=== PATIENT | female | born 1970 | race Hispanic/Latino ===

== ENCOUNTER → 2024-09-11 | Outpatient (CLI) | payer MEDICAID ==
[2024-09-11 12:09] LABS: BASOPHILS # (AUTO) 0.04 K/uL (0.00-0.20); BASOPHILS % (AUTO) 0.6 % (0.0-5.0); EOSINOPHILS # (AUTO) 0.14 K/uL (0.00-0.70); EOSINOPHILS % (AUTO) 1.9 % (0.0-8.0); HEMATOCRIT 41.7 % (36-48); IMMATURE GRANULOCYTE ABSOLUTE 0.03 K/uL (0-1); LYMPHOCYTES # (AUTO) 2.3 K/uL (1.0-4.8); LYMPHOCYTES % (AUTO) 32.4 % (21.0-51.0); MEAN CORPUSCULAR HEMOGLOBIN 29.4 pg (27.0-33.0); MEAN CORPUSCULAR HGB CONC 32.1 g/dL (32.0-36.0); MEAN CORPUSCULAR VOLUME 91.4 fL (79-99); MONOCYTES # (AUTO) 0.5 K/uL (0.1-1.0); MONOCYTES % (AUTO) 7.5 % (3.0-13.0); NEUTROPHILS # (AUTO) 4.1 K/uL (1.8-7.7); NEUTROPHILS % (AUTO) 57.2 % (40.0-77.0); PLATELET COUNT (AUTO) 164 K/uL (130-400); RED BLOOD CELL COUNT(AUTO) 4.56 MIL/uL (4.00-5.50); RED CELL DISTRIBUTION WIDTH 13.2 % (11.0-15.5); WHITE BLOOD COUNT (AUTO) 7.2 K/uL (4.8-10.8)
[2024-09-11 12:53] LABS: ALBUMIN 3.2 g/dL (3.5-5.0); BILIRUBIN,TOTAL 0.5 mg/dL (0.2-1.0); CREATININE 0.9 mg/dL (0.5-1.0); HEMOGLOBIN A1C 12.5 % (4.0-6.0); POTASSIUM 5.2 mmol/L (3.5-5.1); T4 (THYROXINE) 11.7 ug/dL (4.7-13.3); THYROID STIMULATING HORMONE 2.59 uIU/mL (0.36-3.74); TOTAL PROTEIN, SERUM 7.6 g/dL (6.0-8.3)
== END | disposition home or self-care (01) ==
LOC: LAB 09:22
PROVIDERS: ATTEND Internal Medicine Cardiovascular Disease
DX: R00.2 Palpitations (principal); R07.9 Chest pain, unspecified; R01.1 Cardiac murmur, unspecified; I70.8 Atherosclerosis of other arteries; I73.9 Peripheral vascular disease, unspecified
CPT/HCPCS: 36415; 80053; 80061; 83036; 83880; 84436; 84443; 84479; 85025

== ENCOUNTER → 2024-09-15 | Outpatient (CLI) | payer MEDICAID ==
--- NOTE | 2024-09-15 16:14 | HMCIMG ---
US CAROTID DUPLEX REASON: r09.89 TECHNIQUE: Exam was performed using spectral analysis and color flow imaging. FINDINGS: Color flow Doppler ultrasound shows normal-appearing bifurcations. There is no anatomic evidence of significant focal narrowing. Flow velocities and velocity ratios appear normal throughout. There is antegrade flow in both vertebral arteries. RIGHT CAROTID: CCA: 101 cm/sec ICA: 107 cm/sec Ratio: ICA/CCA: 1.0 ECA: 126 cm/sec Vertebral artery: 71 cm/sec LEFT CAROTID: CCA: 89 cm/sec ICA: 113 cm/sec Ratio: ICA/CCA: 0.9 ECA: 2 2 cm/sec Vertebral artery: 98 cm/sec IMPRESSION: Normal bilateral carotid Doppler ultrasound.
== END | disposition home or self-care (01) ==
LOC: RAH 13:37
PROVIDERS: ATTEND Internal Medicine Cardiovascular Disease
DX: R09.89 Other specified symptoms and signs involving the circulatory and respiratory systems (principal)
CPT/HCPCS: 93880

== ENCOUNTER → 2024-09-28 | Outpatient (CLI) | payer MEDICAID ==
[~2024-09-28] MED LIST: REGADENOSON 0.4 MG/5 ML PF SYG IVP ONE
--- NOTE | 2024-09-29 12:14 | HMCSR ---
APPROVED REPORT Height: 5 ft 5in Weight: 245 lbs TEST INDICATIONS Chest Pain The imaging protocol used to acquire images was Rest Tc-99m/stress Tc-99m 1 day Consent: The procedure was explained and understood by the patient. Informerd consent was witnessed Jamarcus Carroll RN First, low dose rest was performed then high dose stress. RESTING DATA: The resting ekg shows: NSR Rest SPECT myocardial perfusion imaging was performed in supine position minutes following the intra venous injection of 11 mCi of Tc-99 Sestamibi. Time of rest injection: 09:48: Date: 09/28/2024 PHARMACOLOGIC STRESS: Pharmacologic stress test was performed by injecting regadenoson 0.4 mg IV push followed by the intra venous injection of 29 mCi of Tc-99 Sestamibi. Time of stress injection: 11:30: Date: 09/28/2024 Heart Rate at time of stress injection: 91 bpm. The images were gated to evaluate regional wall motion and calculate left ventricular ejection fracti on. STRESS DETAILS Reason for Termination: Infusion complete Stress Symptoms: Increased Breathing Max HR Achieved: 110 bpm % of APMHR Achieved: 78 Max Blood Pressure: 165/54 mmHg Stress ECG: NSR LEFT VENTRICLE Size: The left ventricular size is normal. Systolic Function:The left ventricular systolic function is normal. Wall Motion: No regional wall motion abnormalities noted. The left ventricular ejection fraction was calculated to be 58%.TID = . LV PERFUSION The rest and stress images show normal perfusion. Conclusion The left ventricular size is normal. The left ventricular systolic function is normal. No regional wall motion abnormalities noted. The rest and stress images show normal perfusion. The left ventricular ejection fraction was calculated to be 58%.
== END | disposition home or self-care (01) ==
LOC: RAH 09:02
PROVIDERS: ATTEND Internal Medicine Cardiovascular Disease
DX: R07.9 Chest pain, unspecified (principal)
CPT/HCPCS: 78452; 93017; J2785; A9500 ×2

== ENCOUNTER → 2024-10-01 | Outpatient (CLI) | payer MEDICAID ==
[~2024-10-01] MED LIST changes: +IOHEXOL 350 MG/ML 100ML INFUS..BTL IV ONE; +IOHEXOL-350 50ML VIAL IV ONE; -REGADENOSON 0.4 MG/5 ML PF SYG IVP ONE
--- NOTE | 2024-10-01 13:11 | HMCIMG ---
CT ANGIO ABD AORTA W RUNOFF REASON: PVD COMPARISON: None TECHNIQUE: Axial images are obtained from lung bases through the symphysis pubis before and after IV contrast, 150 cc Omnipaque 350. FINDINGS: Contrast outlines normal appearing aorta. Renal and mesenteric artery origins are widely patent. There is some atherosclerotic change at the iliac bifurcation. Right common iliac artery is patent. The right external iliac artery is severely narrowed along an extended segment. Common femoral artery has only a pinpoint channel on the right. The left common iliac artery is occluded at its origin. There is an occluded stent extending to the external iliac artery. External iliac artery is also occluded. There is a femoral to femoral graft in place. This is occluded as well. Right leg runoff shows reconstitution of the superficial femoral artery. The SFA and popliteal arteries are widely patent. There is three-vessel runoff to the ankle. There is posterior tibial and dorsalis pedis runoff to the foot. Left leg also demonstrates a widely patent superficial femoral artery. The common femoral artery appears occluded. Popliteal artery is patent. Trifurcation vessels are intact. There is three-vessel runoff to the ankle with dorsalis pedis and posterior tibial runoff to the foot. There is moderate hepatic steatosis. Spleen, kidneys and pancreas appear normal, the gallbladder is absent. Bowel loops appear unremarkable. Pelvic soft tissues are unremarkable. There is no ventral hernia. IMPRESSION: 1. Patent abdominal aorta, renal and mesenteric artery origins are patent. 2. Patent right common iliac artery however there is a distended severe narrowing of the right external carotid artery, the right common femoral artery has only a pinpoint opening 3. Left common iliac arteries occluded at its origin, extracranial iliac artery is occluded, the left common femoral artery is occluded, there is also an occluded femoral to femoral graft 3. Both legs showed near normal runoff, superficial femoral and popliteal arteries are widely patent, trifurcation vessels are intact, three-vessel runoff to the ankle with 2 vessel runoff to the foot on both sides. 4. Moderate hepatic steatosis, there are no acute nonvascular findings.
== END | disposition home or self-care (01) ==
LOC: RAH 09:54
PROVIDERS: ATTEND Internal Medicine Cardiovascular Disease
DX: I74.5 Embolism and thrombosis of iliac artery (principal); I73.9 Peripheral vascular disease, unspecified; K76.0 Fatty (change of) liver, not elsewhere classified; I70.8 Atherosclerosis of other arteries; I77.1 Stricture of artery; Z90.49 Acquired absence of other specified parts of digestive tract
CPT/HCPCS: 75635; Q9967 ×3

== ENCOUNTER → 2024-10-15 | Outpatient (CLI) | payer MEDICAID ==
--- NOTE | 2024-10-19 07:39 | HMCSR ---
APPROVED REPORT EXAM: Two-dimensional and M-mode echocardiogram with Doppler and color Doppler. 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 Chest Pain Murmur 2D Dimensions RVDd3.3 cmLVEF(%)58.0 (>50%)LVED Vol(simp.)127.0 mL IVSd1.4 (0.7-1.1cm)FS(%)30 %LVES Vol(simp.)57.0 mL LVDd4.1 (3.8-5.6cm)Ao Root(2D)3.0 (2.0-3.7cm)LVEF(%, simp.)55 % PWd1.2 (0.7-1.1cm)LVOT diam2.0 (1.8-2.4cm)LA ESV INDEX (BP)31.07 mL/m2 LVDs2.9 (2.5-4.0cm)IVC diam1.1 cm Aortic Valve AoV Vmax1.3 m/Michael Peak GR7.0 mmHgLVOT Vmax1.0 m/s AoV VTI0.3 mAo Mean GR3.6 mmHgLVOT VTI0.20 m RONN (VMAX)2.5 cm2AVA (VTI) 2.5 cm2 Mitral Valve MV E Zzxf691.1 cm/sDECEL Wbrx764 msMV Peak GR12 mmHg MV A Xpbl068.2 cm/sP 1/2 T55 msMV Mean GR7 mmHg E/A ratio0.8MVA (PHT)4.0 cm2 MR Max PG91 mmHg TDI E/E' Rvtxhj73.0E/E' Wpwxkpw15.7 Pulmonary Valve PV Vmax0.9 m/sPV VTI0.17 mPV Mean GR2 mmHg PV Peak GR3.3 mmHg Tricuspid Valve TR Vmax2.0 m/sRAP (EST) 3 yqHiDLQW21.0 mmHg TR Peak GR16.0 mmHg Left Ventricle Left ventricular cavity size is normal. There is normal LV segmental wall motion. There is mild to mo derate concentric left ventricular hypertrophy. LVEF is 55-60%. No left ventricle thrombus noted on t his study. Grade 1 diastolic dysfunction Right Ventricle The right ventricle is normal size. The right ventricular systolic function is normal. Atria The left atrium size is normal. The right atrium size is normal. Aortic Valve Aortic valve is trileaflet. Aortic valve leaflets are sclerotic but open well. Trace aortic regurgita tion. There is no aortic valvular stenosis. Mitral Valve The mitral valve is mildly thickened. Mitral annular calcification is mild. Mitral regurgitation is m oderate. Calculated mitral valve area is 1.7 cm2 with maximum pressure gradient of 11.8 mmHg and mean pressure gradient of 6.6 mmHg. Tricuspid Valve The tricuspid valve leaflets appear normal. There is trace tricuspid regurgitation. Pulmonic Valve Pulmonic valve is not well visualized. Great Vessels The aortic root is normal in size. The IVC is normal in size and collapses >50% with inspiration. Pericardium No pericardial effusion. Other Information Quality : Technically Limited Technically limited study due to body habitus. Conclusion Left ventricular cavity size is normal. There is mild to moderate concentric left ventricular hypertrophy. LVEF is 55-60%. Grade 1 diastolic dysfunction The right ventricle is normal size. The left atrium size is normal. Aortic valve is trileaflet. Aortic valve leaflets are sclerotic but open well. Trace aortic regurgitation. The mitral valve is mildly thickened. Mitral annular calcification is mild. Mitral regurgitation is moderate. Calculated mitral valve area is 1.7 cm2 with maximum pressure gradient of 11.8 mmHg and mean pressure gradient of 6.6 mmHg. There is trace tricuspid regurgitation. The aortic root is normal in size. The IVC is normal in size and collapses >50% with inspiration. No pericardial effusion.
== END | disposition home or self-care (01) ==
LOC: SHCH 11:39
PROVIDERS: ATTEND Internal Medicine Cardiovascular Disease
DX: I08.0 Rheumatic disorders of both mitral and aortic valves (principal); I25.119 Atherosclerotic heart disease of native coronary artery with unspecified angina pectoris; R01.1 Cardiac murmur, unspecified; R07.9 Chest pain, unspecified
CPT/HCPCS: 93306

== ENCOUNTER → 2024-11-13 | Outpatient (CLI) | payer MEDICAID ==
[~2024-11-13] VITALS: Ht 167.6 cm; Wt 107.5 kg
[~2024-11-13] MED LIST changes: +0.9%NACL 1000ML 1,000 ML IV SCH; +ALBU18HF7 IH; +APIX5TAB PO; +BACL10TA PO; +BUDE10.2 IH; +CLOP75TA32 PO; +DULO30CA52 PO; +ERGO500093 PO; +INSU100I15 SQ; +INSU3INS3 SQ; -IOHEXOL 350 MG/ML 100ML INFUS..BTL IV ONE; -IOHEXOL-350 50ML VIAL IV ONE; +LISI5TAB21 PO; +METO25TA6 PO
[2024-11-13 15:09] VITALS: BP 158/67; PULSE 116; RESP 18; TEMP 99.1
[2024-11-13 15:20] LABS: BASOPHILS # (AUTO) 0.03 K/uL (0.00-0.20); BASOPHILS % (AUTO) 0.5 % (0.0-5.0); EOSINOPHILS # (AUTO) 0.09 K/uL (0.00-0.70); EOSINOPHILS % (AUTO) 1.4 % (0.0-8.0); HEMATOCRIT 39.4 % (36-48); IMMATURE GRANULOCYTE ABSOLUTE 0.02 K/uL (0-1); LYMPHOCYTES # (AUTO) 1.5 K/uL (1.0-4.8); LYMPHOCYTES % (AUTO) 23.9 % (21.0-51.0); MEAN CORPUSCULAR HGB CONC 32.5 g/dL (32.0-36.0); MEAN CORPUSCULAR VOLUME 92.5 fL (79-99); MONOCYTES # (AUTO) 0.5 K/uL (0.1-1.0); MONOCYTES % (AUTO) 7.1 % (3.0-13.0); NEUTROPHILS # (AUTO) 4.2 K/uL (1.8-7.7); NEUTROPHILS % (AUTO) 66.8 % (40.0-77.0); PLATELET COUNT (AUTO) 124 K/uL (130-400); RED BLOOD CELL COUNT(AUTO) 4.26 MIL/uL (4.00-5.50); RED CELL DISTRIBUTION WIDTH 13.5 % (11.0-15.5); WHITE BLOOD COUNT (AUTO) 6.3 K/uL (4.8-10.8)
--- NOTE | 2024-11-13 15:21 | EKG ---
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
[2024-11-13 15:30] LABS: APPEARANCE,URINE CLEAR (CLEAR); BILIRUBIN,URINE NEGATIVE (NEGATIVE); COLOR,URINE LIGHT-YELLOW (YELLOW); GLUCOSE, URINE (UA) >=1000 mg/dL (NEGATIVE); KETONES,URINE NEGATIVE (NEGATIVE); LEUKOCYTE ESTERASE ,URINE 25 Leu/uL (NEGATIVE); NITRATE,URINE NEGATIVE (NEGATIVE); PH,URINE 5.5 (5.0-8.0); PROTEIN,URINE NEGATIVE (NEGATIVE); UROBILINOGEN,URINE 0.2 mg/dL (0.2-1.0)
[2024-11-13 15:31] LABS: INR 1.01 (0.85-1.15); PROTHROMBIN TIME 10.7 SEC (9.6-11.6)
[2024-11-13 15:32] LABS: PARTIAL THROMBOPLASTIN TIME 25.1 SEC (26.3-35.5)
[2024-11-13 15:34] LABS: ADD UA MICROSCOPIC YES
[2024-11-13 15:35] LABS: BACTERIA,URINE RARE /HPF (None Seen); MUCUS,URINE RARE LPF (None Seen); SQUAMOUS EPITHELIAL CELL,UR RARE /HPF (0-2)
[2024-11-13 15:40] LABS: POTASSIUM 4.8 mmol/L (3.5-5.1)
[2024-11-13 15:53] LABS: B-TYPE NATRIURETIC PEPTIDE 38 pg/mL (0-100)
--- NOTE | 2024-11-13 16:10 | NUR ---
RE: ;ABS REPORTED UA RESULTS TO EDELMIRA AVILEZ NP (PATIENT ASYMPTOMATIC, WBC 6.3 AND PENDING URINE CX RESULTS) NO NEW ORDERS RECEIVED.
--- NOTE | 2024-11-13 16:16 | HMCIMG ---
Exam Type: CHEST 1VW Clinical Information: PRE OPS Comparison: None Findings: The lungs are clear of infiltrates. The heart is normal in size. The bony and soft tissue structures of the chest are unremarkable. Impression: Clear lungs.
== END | disposition home or self-care (01) ==
LOC: EDSTATUS 14:00 → DAH 14:27
PROVIDERS: ATTEND Internal Medicine Cardiovascular Disease
DX: Z01.818 Encounter for other preprocedural examination (principal); R00.0 Tachycardia, unspecified; I73.9 Peripheral vascular disease, unspecified
CPT/HCPCS: 36415; 71045; 80048; 81001; 83880; 85025; 85610; 85730; 87086; 93005

== ENCOUNTER 2024-12-04 05:50 | Day surgery (SDC) | payer MEDICAID ==
[2024-12-02 11:25] LABS: BASOPHILS # (AUTO) 0.04 K/uL (0.00-0.20); BASOPHILS % (AUTO) 0.6 % (0.0-5.0); EOSINOPHILS # (AUTO) 0.14 K/uL (0.00-0.70); EOSINOPHILS % (AUTO) 2.1 % (0.0-8.0); HEMATOCRIT 39.2 % (36-48); IMMATURE GRANULOCYTE ABSOLUTE 0.03 K/uL (0-1); LYMPHOCYTES # (AUTO) 2.1 K/uL (1.0-4.8); LYMPHOCYTES % (AUTO) 32.4 % (21.0-51.0); MEAN CORPUSCULAR HEMOGLOBIN 29.8 pg (27.0-33.0); MEAN CORPUSCULAR HGB CONC 32.7 g/dL (32.0-36.0); MEAN CORPUSCULAR VOLUME 91.4 fL (79-99); MONOCYTES # (AUTO) 0.4 K/uL (0.1-1.0); MONOCYTES % (AUTO) 6.7 % (3.0-13.0); NEUTROPHILS # (AUTO) 3.8 K/uL (1.8-7.7); NEUTROPHILS % (AUTO) 57.7 % (40.0-77.0); PLATELET COUNT (AUTO) 141 K/uL (130-400); RED BLOOD CELL COUNT(AUTO) 4.29 MIL/uL (4.00-5.50); RED CELL DISTRIBUTION WIDTH 13.4 % (11.0-15.5); WHITE BLOOD COUNT (AUTO) 6.6 K/uL (4.8-10.8)
[2024-12-02 11:34] LABS: POTASSIUM 4.4 mmol/L (3.5-5.1)
[2024-12-02 11:35] VITALS: BP 132/58; PULSE 98; RESP 17; TEMP 98.2
[2024-12-02 11:41] LABS: INR 0.97 (0.85-1.15); PROTHROMBIN TIME 10.3 SEC (9.6-11.6)
[2024-12-02 11:43] LABS: PARTIAL THROMBOPLASTIN TIME 25.1 SEC (26.3-35.5)
[2024-12-02 11:43] LABS: APPEARANCE,URINE CLEAR (CLEAR); BILIRUBIN,URINE NEGATIVE (NEGATIVE); COLOR,URINE LIGHT-YELLOW (YELLOW); GLUCOSE, URINE (UA) >=1000 mg/dL (NEGATIVE); KETONES,URINE NEGATIVE (NEGATIVE); LEUKOCYTE ESTERASE ,URINE NEGATIVE Leu/uL (NEGATIVE); NITRATE,URINE NEGATIVE (NEGATIVE); OCCULT BLOOD,URINE NEGATIVE (NEGATIVE); PH,URINE 5.5 (5.0-8.0); PROTEIN,URINE 10 mg/dL (NEGATIVE); UROBILINOGEN,URINE 0.2 mg/dL (0.2-1.0)
[2024-12-02 11:44] LABS: ADD UA MICROSCOPIC YES
[2024-12-02 11:45] LABS: RBC,URINE 0-1 /HPF (0-1); SQUAMOUS EPITHELIAL CELL,UR RARE /HPF (0-2); WBC,URINE 0-1 /HPF (0-1)
[2024-12-02 11:55] LABS: B-TYPE NATRIURETIC PEPTIDE 8 pg/mL (0-100)
--- NOTE | 2024-12-02 12:01 | EKG ---
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
--- NOTE | 2024-12-02 12:55 | HMCIMG ---
CHEST 1VW HISTORY: Preop COMPARISON: 11/13/2024 FINDINGS: A frontal projection of the chest was obtained. No acute pulmonary infiltrates is seen. The heart is borderline enlarged. Prominent interstitial markings are seen. Degenerative changes are seen. Aortic calcifications are seen. IMPRESSION: 1. No acute pulmonary infiltrate is seen.
--- NOTE | 2024-12-02 16:31 | NUR ---
REPORT REPORTED RBS SINCE THIS MORNING OF 438 TO EDELMIRA AVILEZ COSMETOLOGIST WILL WAIT FOR ORDERS BUT PT JUST TOOK INSULIN AND SHE HAD A LARGE BREAKFAST. ALSO REPORTED PT TRIPPED AND FELL THIS MORNING. PT DENIED HITTING HEAD OR PASSING OUT BUT DID SCRAPE HER LEFT KNEE. PT ON ELIQUIS 5MG BID BUT TAKES 10MG AT NIGHT DAILY. PT INSTRUCTED ON THE IMPORTANCE OF TAKING MEDICATIONS CORRECTLY AND INSULIN ON TIME. PT VOICED UNDERSTANDING. RECEIVED CALL BACK FROM EDELMIRA AVILEZ COSMETOLOGIST TO HAVE PT TAKE HALF DOSE OF INSULIN THE NIGHT BEFORE AND REPEAT BLOOD SUGAR AM OF PROCEDURE AND HAVE PT HOLD ELIQUIS STARTING TODAY. PT VOICED UNDERSTANDING DID REINFORCE THE IMPORTANCE OF TAKING MEDICATION PRESCRIBED BY
[~2024-12-04] VITALS: Ht 165.1 cm; Wt 106.3 kg
[2024-12-04] VITALS (21 sets, daily range): BP systolic 112–167; BP diastolic 66–83; PULSE 84–100; RESP 13–18; TEMP 97.2–97.9
[~2024-12-04 05:50] MED LIST changes: -0.9%NACL 1000ML 1,000 ML IV SCH
[2024-12-04] MEDS: 0.9%NACL 1000ML 1,000 ML IV SCH (06:48)
[2024-12-04] MEDS ORDERED: HEParin-NS 1,000 UNIT/500 ML 1,000 ML IV ONE (07:16)
[2024-12-04] MEDS ORDERED: LIDOCAINE HCL 400MG/20ML VIAL ONE (07:16)
[2024-12-04] MEDS ORDERED: HEParin 10,000 UNIT/10ML (1,000 UNIT/ML) VIAL ONE ×2 (07:16→10:23)
[2024-12-04] MEDS ORDERED: SODIUM BICARB 50MEQ 50ML VIAL 50 ML ONE (07:16)
[2024-12-04] MEDS ORDERED: NITROGLYCERIN 50MG VIAL ONE (07:16)
[2024-12-04] MEDS ORDERED: FENTanyl CITRate PF 50 MCG/1 ML 2ML VIAL ONE (07:33)
[2024-12-04] MEDS ORDERED: MIDAZOLAM HCL 1 MG/ML 2ML VIAL ONE ×4 (07:33→10:48)
[2024-12-04] MEDS ORDERED: DiphenhydrAMINE HCL 50 MG/ML VIAL ONE (07:34)
[2024-12-04] MEDS ORDERED: IOHEXOL 350 MG/ML 100ML INFUS..BTL IV ONE (07:38)
[2024-12-04] MEDS ORDERED: IODIXANOL 320 MG/ML 100 ML VIAL ONE (07:41)
[2024-12-04] MEDS ORDERED: niCARDIpine 25MG INJ IV ONE (08:04)
[2024-12-04] MEDS ORDERED: IOHEXOL-350 50ML VIAL IV ONE (08:14)
[2024-12-04] MEDS ORDERED: HEParin-NS 1,000 UNIT/500 ML 500 ML IV ONE ×2 (08:28→10:21)
[2024-12-04] MEDS ORDERED: LAbetaLOL 20MG SYG IV ONE (10:47)
[2024-12-04] MEDS ORDERED: GLUCAGON 1MG KIT 1 MG ML IM PRN (11:30)
[2024-12-04] MEDS ORDERED: 0.9%NACL 1000ML 1,000 ML IV SCH (11:30)
[2024-12-04] MEDS ORDERED: DEXTROSE 50%-WATER 50 ML DISP.SYRIN IV PRN (11:30)
--- NOTE | 2024-12-04 12:10 | NUR ---
URINARY: INCONTINENCE OF URINE. CHANGED LINEN AND CLEANSED PATIENT. APPLIED ADULT BRIEF DUE TO PATIENT INCONTINENCE.
[2024-12-04] MEDS: INSULIN humuLIN R 100 UNIT/ML 3ML SQ SCH (12:32)
--- NOTE | 2024-12-04 12:39 | PR ---
PROCEDURES PERFORMED: * Placement of a catheter in the abdominal aorta. * Abdominal aortogram. * Placement of a catheter in the right and left common and right and left external iliac arteries. * Placement of a catheter in the left SFA, left profunda femoris. * Selective right and left common and external iliac artery angiograms. * Selective left SFA and left profunda femoris angiogram. * Drug-coated balloon angioplasty of the right external iliac artery and the right common femoral artery. * Drug-coated balloon angioplasty of the left SFA, the left common femoral artery, the left external iliac artery, and the left common iliac artery. * Placement of a stent in the left SFA, and the left common femoral artery. * Placement of a stent in the left external iliac artery. * Placement of a stent in the left common iliac artery. * Conscious sedation for 120 minutes. INDICATIONS: * Severe peripheral vascular disease. * Disabling claudication. * Status post remote left common iliac artery stenting and fem-fem surgery. * Documentation of occluded right external iliac artery, left common iliac artery, and fem-fem graft by prior imaging. COMPLICATIONS: None. ESTIMATED BLOOD LOSS: Approximately 25 mL. PRECONTRAST: Approximately 120. Conscious sedation was administered for 120 minutes. APPROACH: Left brachial approach. DESCRIPTION OF PROCEDURE: The patient was taken to the cardiac catheterization lab after the appropriate operative consents were signed. She was prepped and draped in the usual fashion. After conscious sedation was administered, the left brachial artery region was infiltrated with 2% Xylocaine without epinephrine. A slender 6-Uzbek radial sheath was advanced in retrograde fashion by modified Seldinger technique. A pigtail catheter was advanced over an indwelling J wire and was positioned in the abdominal aorta distally above the level of the bifurcation. An abdominal aortogram was performed in AP projection with digital acquisition. 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 The patient had minimal reconstituted flow to the left SFA and common femoral distally via collateralization from sacral branches and reconstituted internal iliac artery on the left. The right common iliac artery had minor luminal irregularities. The right internal iliac artery was patent. The right internal iliac artery had severe disease. The right external iliac artery was 100% occluded and reconstituted flow was noted at the level of the distal common femoral, proximal SFA and profunda. There was no flow documented in the fem-fem graft. At this point, we exchanged for a 6 x 105 slender R2P sheath. 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 We were able to advance a Glidewire and followed that with a multipurpose catheter. Multiple attempts were made to cross the right common femoral artery; however, there is evidence of right to left fem graft which the wire would traversed into. At that level, there is a chronic occlusion with essentially no antegrade flow except few minimal collateralization. The area was felt to be related to a suture segment. However, I felt that improving the inflow might help and I elected to proceed with balloon angioplasty with drug-coated balloon of the right external iliac artery. We utilized a 6 mm drug-coated balloon with good final angiographic results. At this point, we directed our attention to the left iliac system. We were able to utilize multiple catheters and finally we were able to cross with a Glidewire in a mini into the SFA and the profunda femoris. Both of those were imaged with contrast to make sure that we were intraluminal. At this point, we utilized a 6 mm balloon and dilated the left SFA to common femoral and left external iliac as well as the left common iliac artery. We initially utilized a 4 mm balloon to allow us to advance the drug-coated balloon. Once we were able to do that, we were able to reestablish flow in the left common and left SFA. We were able to then advance a 6 mm drug-coated balloon that was placed into the left SFA all the way back to the left common iliac artery. This was inflated to nominal pressures with marked improvement in flow. There was still an area of extrinsic compression and stenosis in the left external iliac artery. Imaging identified a dissection in the left common femoral artery site where the fem-fem graft had been connected. I had proceeded with multiple inflations and then I deployed a balloon expandable stent in the left external iliac artery. Unfortunately, the dissection remained in the left common femoral artery and as much as I did not want to place a stent there, I felt that will probably occlude and so I placed a self-expanding 8 x 120 mm EverFlex which went from the SFA back to the left external iliac artery. This was postdilated with 6 a mm balloon to 12 atmospheres. The left ostial and common iliac artery, which was 100% occluded before the previously deployed stent was managed with placement of an 8 x 37 balloon expandable stent, which was deployed to 12 atmospheres with good final angiographic results. At this point, the procedure was completed, we exchanged the long sheath for a short 6-Uzbek sheath because the ACT was 300. This was sutured in place. The patient would be managed with manual compression and closure after the ACT has come back down to 150 or the PTT is less than 50. 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 It is important to note that the left dorsalis pedis was palpable at the end of the procedure and was non-obtainable on the beginning of the procedure. FINAL IMPRESSION: * Successful balloon angioplasty with drug-coated balloon of the right external iliac, right common femoral arteries. * Successful balloon angioplasty and drug-coated balloon angioplasty of the left SFA, left common femoral, left external iliac, and left common iliac arteries. * Successful placement of a self-expanding stent in the left SFA traversing back to the left external iliac artery. * Successful balloon expandable stent in the left external iliac artery. * Successful balloon expandable stent in the left common iliac artery. I will consider surgical evaluation to explore the right common femoral artery region versus proceeding with a retrograde approach for the right common femoral artery by popliteal access. TID: [id number] RECEIPT: [id number]
[2024-12-04] MEDS ORDERED: ATROPINE 1MG SYG IVP ONE (13:45)
--- NOTE | 2024-12-04 13:54 | NUR ---
SHEATH PULLED AT THIS TIME VSS NAD D-STAT APPLIED WITH MANUAL PRESSURE HELD X 15 MINUTES. PT TOLERATED WELL
--- NOTE | 2024-12-04 13:56 | NUR ---
report: hand-off communication given to pauline covington rn
== END 2024-12-04 16:42 | disposition home or self-care (01) ==
LOC: DAH 05:50
PROVIDERS: ATTEND Internal Medicine Cardiovascular Disease
DX: E11.51 Type 2 diabetes mellitus with diabetic peripheral angiopathy without gangrene (principal); I70.219 Atherosclerosis of native arteries of extremities with intermittent claudication, unspecified extremity; I70.92 Chronic total occlusion of artery of the extremities; I10 Essential (primary) hypertension; K21.9 Gastro-esophageal reflux disease without esophagitis; E78.2 Mixed hyperlipidemia; E66.9 Obesity, unspecified; G47.33 Obstructive sleep apnea (adult) (pediatric); G54.4 Lumbosacral root disorders, not elsewhere classified; M96 Intraoperative and postprocedural complications and disorders of musculoskeletal system, not elsewhere classified; Z85.43 Personal history of malignant neoplasm of ovary; Z90.710 Acquired absence of both cervix and uterus; Z90.49 Acquired absence of other specified parts of digestive tract; Z88.5 Allergy status to narcotic agent; Z79.01 Long term (current) use of anticoagulants; Z98.890 Other specified postprocedural states; Z79.899 Other long term (current) drug therapy
CPT/HCPCS: 80048; 83880; 85025; 85610; 85730 ×2; 81001; 36415 ×2; 71045; 93005; 37226; 75625; 37221; 37223; 85347 ×2; 82948 ×2; 37220; 37224; 75716; J1815; C1887 ×2; C1876 ×3; C1769 ×2; C1894 ×3; C2623 ×2; C1725; J1200; J3010; J3490 ×4; J7030; J1644 ×5; J2250 ×4; Q9967 ×2; A4215; A6402; A4335; A4222; A4221; A4663; A4216; A4606; A4520; A4223 ×3; 96360; 96361; 99156; 99157; J0461